=== PATIENT | male | born 1990 | race Caucasian/White ===

== ENCOUNTER 2017-03-04 14:11 | Emergency (ER) | payer SELFPAY ==
[~2017-03-04] VITALS: Ht 177.8 cm; Wt 70.5 kg
[2017-03-04 14:13] VITALS: BP 135/84; PULSE 106; RESP 18; TEMP 97.8
[2017-03-04 14:19] VITALS: PULSE 88
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
[2017-03-04] MEDS ORDERED: TETANUS/DIPHTHERIA TOXOID ADULT 0.5 ML VIAL IM ONE (14:30)
[2017-03-04] MEDS ORDERED: ACETAMINOPHEN/HYDROcodone 325 MG/5 MG TAB PO ONE (14:30)
[2017-03-04] MEDS ORDERED: SULFAMETHOXAZOLE-TRIMETHOPRIM DS 800-160 MG TAB PO ONE (14:30)
[2017-03-04] MEDS ORDERED: CIPROFLOXACIN 500 MG TAB PO ONE (14:30)
--- NOTE | 2017-03-04 14:53 | RADRPT ---
EXAM DATE/TIME: 03/04/2017 14:45 [facility] COMPARISON: No previous studies available for comparison. INDICATIONS : Left foot pain. Patient stepped on a nail today. MEDICAL HISTORY : None. SURGICAL HISTORY : None. ENCOUNTER: Initial ACUITY: 1 day PAIN SCORE: 8/10 LOCATION: Left foot. FINDINGS: Two view examination of the left foot demonstrates no soft tissue swelling, dislocation, or fracture. The calcaneus is intact. 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 The margins are smooth suggesting this is chronic. Bony mineralization is normal. No foreign body i s seen. CONCLUSION: No acute abnormality is seen. Phil Galvez MD on March 04, 2017 at 14:50 Board Certified Radiologist. This report was verified electronically.
[2017-03-04] MEDS ORDERED: CIPR-9 PO (15:14)
[2017-03-04] MEDS ORDERED: BACT800T5 PO (15:14)
== END 2017-03-04 15:00 | disposition home or self-care (01) ==
LOC: EDTENT 14:11
DX: S91.332A Puncture wound without foreign body, left foot, initial encounter (principal); Z23 Encounter for immunization; W22.8XXA Striking against or struck by other objects, initial encounter
CPT/HCPCS: 28190; 73620; 90471; 90714; 99284; E0113